=== PATIENT | female | born 1950 | race Caucasian/White ===

== ENCOUNTER 2019-04-24 11:01 | Outpatient (CLI) | payer MEDICARE ==
--- NOTE | 2019-04-24 11:50 | ULT ---
Thyroid ultrasound: 04/24/2019 COMPARISON: None HISTORY: Multiple thyroid nodules TECHNIQUE: Multiplanar grayscale sonographic imaging of the thyroid gland obtained. FINDINGS: Thyroid isthmus measures 2-3 mm in AP dimension, right lobe measures 3.4 x 1.0 x 1.2 cm, an d left lobe measures 3.3 x 1.6 x 1.3 cm. There is a dominant solid hypoechoic nodule within the midportion of the right lobe of the thyroid gl and measuring 1.8 x 1.3 x 1.5 cm. There are 4 additional small nodules within the superior aspect of the right lobe of the thyroid gland. This includes 3 solid nodules measuring up to 8 mm, 4 mm, and 4 mm respectively, as well as a 2 mm cystic nodule. There is a solid nodule at the left aspect of the isthmus measuring 1.2 x 0.4 x 1.0 cm. 2. Solid nodules are noted within the left lobe measuring 1.3 x 0.7 x 0.8 cm and 0.5 x 0.3 x 0.4 cm r espectively. IMPRESSION: TI-RADS category 4-moderately suspicious. Given size of the dominant nodule within the right lobe of of greater than 1.5 cm, fine-needle aspiration advised. The other thyroid nodules should be reevaluated with a follow-up ultrasound in one year. CODE T
== END 2019-04-24 11:02 | disposition home or self-care (01) ==
LOC: SCSULT 11:01
PROVIDERS: ATTEND Internal Medicine
DX: E04.2 Nontoxic multinodular goiter (principal)
CPT/HCPCS: 76536

== ENCOUNTER 2019-05-03 12:07 | Day surgery (SDC) | payer MEDICARE, OTHER ==
[2019-05-02 12:16] VITALS: BMI 22.9
[2019-05-03] MEDS ORDERED: Sodium Bicarbonate 2.5 MEQ/5 ML VIAL ONE (13:00)
[2019-05-03] MEDS ORDERED: Lidocaine 1% PF 5 ML VIAL ONE ×2 (13:01→13:09)
[2019-05-03 13:37] VITALS: BP 123/56; TEMP 98
--- NOTE | 2019-05-03 15:45 | ULT ---
Sonographic guided FNA right thyroid mass HISTORY: Right thyroid lobe mass. FINDINGS: After explaining the procedure and answering all questions, the hypoechoic mass in the righ t thyroid lobe was again visualized. Sterile technique, buffered local anesthesia, sonographic guidance, and a medial approach were used to carefully advance a 25-gauge needle into the heterogeneo us hypoechoic mass. A total of 4 FNA passes were made. [place] were submitted to pathology for processing. Postprocedure imaging shows no evidence of complication. Patient tolerated the procedure well and was dismissed in good condition. IMPRESSION: Technically successful sonographic guided FNA right thyroid lobe mass. Pathology is pendi ng.
== END 2019-05-03 13:30 | disposition home or self-care (01) ==
LOC: ULT 12:07
PROVIDERS: ATTEND Internal Medicine
PROC: 0G9H3ZX Drainage of Right Thyroid Gland Lobe, Percutaneous Approach, Diagnostic (ICD-10-PCS; principal; 2019-05-03)
DX: E04.2 Nontoxic multinodular goiter (principal); E78.5 Hyperlipidemia, unspecified; I48.0 Paroxysmal atrial fibrillation; F41.9 Anxiety disorder, unspecified; F17.200 Nicotine dependence, unspecified, uncomplicated; Z79.01 Long term (current) use of anticoagulants; Z79.899 Other long term (current) drug therapy; Z88.5 Allergy status to narcotic agent
CPT/HCPCS: 60100; 76942; 88173; J2001